=== PATIENT | female | born 1960 | race Caucasian/White ===

== ENCOUNTER 2016-04-19 08:52 | Emergency (ER) | payer OTHER ==
[~2016-04-19] VITALS: Ht 162.6 cm; Wt 144.0 kg
[~2016-04-19 08:52] MED LIST: BUFF325T PO; BUSP10TA PO; COZA50TA PO; EXTR500C PO; HYDR12.56 PO; LOSA50TA PO; METO25 PO; VORT10TA
[2016-04-19 08:55] VITALS: BP 179/98; PULSE 97; RESP 16; TEMP 98.1; O2SAT 97
--- NOTE | 2016-04-19 09:10 | PD ---
HPI Chief Complaint: Injury Time Seen by Provider: 09:04 Travel History International Travel<30 days: No Contact w/Intl Traveler<30days: No Traveled to known affect area: No History of Present Illness HPI This is a 55-year-old female who presents to the emergency department having injured her right arm when she was grabbing something out of the oven last night and the oven door closed on her arm. She says she felt fine initially but overnight she started to have severe pain in the elbow and in her hand and when she went to grab for something off of her bedside table she wasn't able to. She says her pain is worse when she tries to rotate the arm. She also has noticed some swelling in her right hand. Her pain is constant and moderate severity. She has no associated numbness or weakness and has no other injuries. PFSH Past Medical History Hx Anticoagulant Therapy: Yes (325 MG. ASA) Anxiety: Yes Depression: Yes Cardiac Catheterization: No Cardiovascular Problems: Yes (HTN, CHOL) High Cholesterol: Yes Congestive Heart Failure: No Diabetes: No Diminished Hearing: No Hypertension: Yes Myocardial Infarction: No Tetanus Vaccination: Unknown ?: Not Past Surgical History Coronary Artery Bypass Graft: No Hysterectomy: Yes Other Surgery: Yes (breast implants) Social History Alcohol Use: No Tobacco Use: No Substance Use: No Allergies-Medications (Allergen,Severity, Reaction): Coded Allergies: Lisinopril (Verified Adverse Reaction, Unknown, Cough, 04/19/16) Reported Meds & Prescriptions Reported Meds & Active Scripts Active Active Prescriptions or Reported Medications Unobtainable Review of Systems General / Constitutional: No: Fever, Chills Gastrointestinal: No: Vomiting Physical Exam Narrative GENERAL: Well-appearing, no acute distress, nontoxic SKIN: Warm and dry. HEAD: Atraumatic. Normocephalic. ENT: No nasal bleeding or discharge. Moist mucous membranes MUSCULOSKELETAL: Swelling of the dorsal aspect of the right hand, tender to palpation over the third metacarpal, tender to palpation over the medial aspect of the right elbow NEUROLOGICAL: Awake and alert. No obvious cranial nerve deficits. Motor grossly within normal limits. Normal speech. Sensation and motor intact in the median, ulnar and radial distribution of the right hand. PSYCHIATRIC: Appropriate mood and affect; insight and judgment normal. Vascular: 2+ right radial pulse with normal capillary refill. Data Data Last Documented VS Vital Signs Date Time Temp Pulse Resp B/P Pulse Ox O2 Delivery O2 Flow Rate FiO2 04/19/16 08:55 98.1 97 16 179/98 97 Orders Hand, Complete ([id number]) (04/19/16 ) Forearm (2vws) (04/19/16 ) Elbow, Complete (4 Vws) (04/19/16 ) MDM Medical Decision Making Medical Screen Exam Complete: Yes Emergency Medical Condition: Yes Interpretation(s) X-ray: No acute fracture of the elbow, forearm or hand Differential Diagnosis Condylar fracture, metacarpal fracture, elbow sprain Narrative Course This is a 55-year-old female who presents the emergency department having slammed her arm and in of and or and subsequently having difficulty supinating her arm as well as pain in her elbow and swelling in her hand. She is a normal neurovascular exam. X-rays are negative for acute fracture. I suspect the patient has an elbow sprain. I recommended rest, ice compression and elevation and follow-up with her primary care physician if she is not improved in 7-10 days. Diagnosis Primary Impression: Elbow sprain Qualified Code: S53.401A - Elbow sprain, right, initial encounter Additional Impression: Hand contusion Qualified Code: S60.221A - Contusion of right hand, initial encounter Patient Instructions: General Instructions Additional Instructions: If you develop increasing swelling, severe pain, numbness or weakness return to the emergency room. Rest your arm and keep it elevated, use an Zackery wrap and ice it throughout the day. Follow-up with your primary care physician if your pain is not improved in one week. Med/Other Pt SpecificInfo: No Change to Meds Scripts Unable to Obtain Active Prescriptions or Reported Meds Disposition: 01 DISCHARGE HOME Condition: Stable Ana Martin MD Apr 19, 2016 09:10
--- NOTE | 2016-04-19 09:39 | RADHPO ---
EXAM DATE/TIME: 04/19/2016 09:25 [facility] COMPARISON: No previous studies available for comparison. INDICATIONS : Right forearm tenderness and pain after oven door slammed on right elbow last night. MEDICAL HISTORY : None. SURGICAL HISTORY : None. ENCOUNTER: Initial ACUITY: 2 days PAIN SCORE: 2/10 LOCATION: Right forearm FINDINGS: Two view examination of the right forearm demonstrates no evidence of fracture or dislocation. Bony mineralization is normal. The soft tissue structures are intact. CONCLUSION: Unremarkable examination of the right forearm. Vipul Hendricks MD on April 19, 2016 at 9:34 Board Certified Radiologist. This report was verified electronically.
--- NOTE | 2016-04-19 09:40 | RADHPO ---
EXAM DATE/TIME: 04/19/2016 09:22 [facility] COMPARISON: No previous studies available for comparison. INDICATIONS : Right hand tenderness and swelling after oven door slammed on right elbow last night. MEDICAL HISTORY : None. SURGICAL HISTORY : None. ENCOUNTER: Initial ACUITY: 2 days PAIN SCORE: 2/10 LOCATION: Right hand FINDINGS: Three view examination of the right hand demonstrates no soft tissue swelling, dislocation, or fractu re. The carpal bones appear intact. The interphalangeal and metacarpophalangeal joints are intact. Bony mineralization is normal. CONCLUSION: Negative for fracture or dislocation. Followup in 7-10 days is suggested if symptoms persist. Juan Antonio Elizabeth MD FACR on April 19, 2016 at 9:38 Board Certified Radiologist. This report was verified electronically.
--- NOTE | 2016-04-19 09:41 | RADHPO ---
EXAM DATE/TIME: 04/19/2016 09:23 [facility] COMPARISON: No previous studies available for comparison. INDICATIONS : Right elbow pain after oven door slammed on right elbow last night. MEDICAL HISTORY : None. SURGICAL HISTORY : None. ENCOUNTER: Initial ACUITY: 2 days PAIN SCORE: 5/10 LOCATION: Right elbow FINDINGS: Multiple view examination of the right elbow demonstrates no soft tissue swelling, joint effusion, or fracture. The osseous structures are in normal alignment. Bony mineralization is normal. CONCLUSION: Negative for fracture or dislocation. Followup in 7-10 days is suggested if symptoms persist. Juan Antonio Elizabeth MD FACR on April 19, 2016 at 9:39 Board Certified Radiologist. This report was verified electronically.
[2016-05-09] MEDS ORDERED: LOVA20TA PO (12:15)
[2016-05-10] MEDS ORDERED: METO25TA3 PO (15:15)
[2016-05-11] MEDS ORDERED: METO25TA3 PO (12:28)
[2016-06-06] MEDS ORDERED: LOSA50TA PO ×2 (10:17→10:39)
[2016-06-06] MEDS ORDERED: HYDR12.57 PO ×2 (10:17→10:39)
[2016-06-06] MEDS ORDERED: VORT1TAB2 PO (10:17)
[2016-06-06] MEDS ORDERED: ACET500C PO (10:17)
[2016-06-06] MEDS ORDERED: BUSP15TA PO (10:17)
[2016-06-06] MEDS ORDERED: LOVA20TA PO (10:39)
[2016-06-06] MEDS ORDERED: METO25TA3 PO (10:39)
== END 2016-04-19 09:55 | disposition home or self-care (01) ==
LOC: PHED 08:52 → PHEFT 09:55
DX: S53.401A Unspecified sprain of right elbow, initial encounter (principal); S60.221A Contusion of right hand, initial encounter; W20.8XXA Other cause of strike by thrown, projected or falling object, initial encounter; Y93.89 Activity, other specified
CPT/HCPCS: 73080; 73090; 73130; 99283